=== PATIENT | female | born 1955 | race Caucasian/White ===

== ENCOUNTER 2023-09-22 16:45 | Inpatient (IN) | payer MEDICARE ==
[~2023-09-22] VITALS: Ht 157.5 cm; Wt 58.5 kg
[2023-09-22] MEDS ORDERED: MIRT7.5T10 PO (19:21)
[2023-09-22] MEDS ORDERED: IBUP-1953 PO (19:21)
[2023-09-22] MEDS ORDERED: MAGNESIUM HYDROXIDE 30 ML UDC PO PRN (20:30)
[2023-09-22] MEDS ORDERED: METO25TA4 PO (20:37)
[2023-09-22] MEDS: BLOOD SUGAR DIAGNOSTIC 1 EACH STRIP IN ONE (20:44)
[2023-09-22] MEDS: LORAZEPAM 0.5 MG TABLET PO PRN (20:45)
[2023-09-22] MEDS: ZOLPIDEM TARTRATE 5 MG TABLET PO PRN (21:50)
[2023-09-22] MEDS: ACETAMINOPHEN 325 MG TABLET PO PRN (22:26)
[2023-09-23] MEDS: IBUPROFEN 400 MG TABLET PO PRN (06:30)
[2023-09-23 07:36] LABS: ALBUMIN 3.1 g/dL (3.4-5.0); BILIRUBIN,TOTAL 0.9 mg/dL (0.2-1.0); CALCIUM, SERUM 9.5 mg/dL (8.5-10.1); CREATININE 0.7 mg/dL (0.6-1.3); POTASSIUM 2.9 mmol/L (3.5-5.1); TOTAL PROTEIN, SERUM 6.5 g/dL (6.4-8.2)
[2023-09-23 08:00] VITALS: BP 181/68; TEMP 98.1; O2SAT 98
[2023-09-23 08:08] LABS: CHOLESTEROL 176 mg/dL (<200); HDL CHOLESTEROL 67 mg/dL (40-60); LDL 90 mg/dL (0-99); TRIGLYCERIDES 93 mg/dL (30-150)
[2023-09-23] MEDS: METOPROLOL SUCCINATE 25 MG TAB.SR.24H PO SCH (08:14)
[2023-09-23] MEDS ORDERED: Z GUARD REMEDY 4 OZ OINT TP PRN (10:00)
[2023-09-23] MEDS: POTASSIUM CHLORIDE 10 MEQ TABLET.SA PO ONE (11:58)
[2023-09-23] MEDS: GABAPENTIN 100 MG CAPSULE PO SCH (12:46)
[2023-09-23] MEDS: hydrOXYzine PAMOATE 25 MG CAPSULE PO PRN (12:46)
[2023-09-23 13:24] LABS: APPEARANCE,URINE CLEAR (CLEAR); BILIRUBIN,URINE NEGATIVE (NEGATIVE); BLOOD, URINE NEGATIVE Ery/uL (NEGATIVE); COLOR,URINE YELLOW (YELLOW); KETONES,URINE TRACE mg/dL (NEGATIVE); LEUKOCYTE ESTERASE ,URINE 2+ (NEGATIVE); NITRITE, URINE NEGATIVE (NEGATIVE); PH,URINE 5.5 (5.0-8.0); PROTEIN,URINE NEGATIVE (NEGATIVE); UGLUCOSE NEGATIVE (NEGATIVE); UROBILINOGEN,URINE 0.2 EU/dL (0.2)
[2023-09-23 14:22] LABS: ADD URINE CULTURE YES; BACTERIA,URINE Many /HPF (None Seen); RBC,URINE 0-2 /HPF (0-2)
[2023-09-23] MEDS: hydrALAZINE HCL 25 MG TABLET PO PRN (15:34)
[2023-09-23] MEDS: LORAZEPAM 1 MG TABLET PO PRN (15:53)
[2023-09-23 16:00] VITALS: BP 182/72; TEMP 97.9; O2SAT 99
[2023-09-23] MEDS: MAG HYDROX/AL HYDROX/SIMETH 30 ML UDC PO PRN (17:50)
[2023-09-23 20:53] VITALS: BP 155/75; TEMP 97.9; O2SAT 98
[2023-09-23] MEDS: MIRTAZAPINE 15 MG TABLET PO SCH (21:10)
[2023-09-23] MEDS: diphenhydrAMINE HCL 50 MG CAPSULE PO PRN (21:28)
[2023-09-23] MEDS: CEPHALEXIN MONOHYDRATE 500 MG CAPSULE PO SCH (22:08)
[2023-09-24 07:11] LABS: BASOPHILS % (AUTO) 0.5 % (0.0-2.0); EOSINOPHILS # (AUTO) 0.1 K/uL (0.0-0.7); EOSINOPHILS % (AUTO) 2.5 % (0.0-6.0); HEMATOCRIT 33 % (33-45); HEMOGLOBIN 10.9 g/dL (11.5-14.8); LYMPHOCYTES # (AUTO) 1.4 K/uL (0.8-4.8); LYMPHOCYTES % (AUTO) 40.6 % (20.0-44.0); MEAN CORPUSCULAR HEMOGLOBIN 27 PG (26.0-33.0); MEAN CORPUSCULAR HGB CONC 33 g/dl (31.0-36.0); MEAN CORPUSCULAR VOLUME 81 fL (82-100); MONOCYTES # (AUTO) 0.3 K/uL (0.1-1.30); MONOCYTES % (AUTO) 9.1 % (2.0-12.0); NEUTROPHILS # (AUTO) 1.7 K/uL (1.8-8.9); NEUTROPHILS % (AUTO) 47.3 % (43.0-81.0); PLATELET COUNT (AUTO) 130 K/uL (150-450); RED BLOOD CELL COUNT(AUTO) 4.09 MIL/uL (4.0-5.2); RED CELL DISTRIBUTION WIDTH 14.9 % (11.5-15.0); WHITE BLOOD COUNT (AUTO) 3.5 K/uL (4.3-11.0)
[2023-09-24 07:20] LABS: CALCIUM, SERUM 9.3 mg/dL (8.5-10.1); CREATININE 0.6 mg/dL (0.6-1.3); POTASSIUM 3.5 mmol/L (3.5-5.1)
[2023-09-24 08:00] VITALS: BP 166/80; TEMP 99.7; O2SAT 100
[2023-09-24] MEDS: VENLAFAXINE XR 37.5 MG CAP.SR.24H PO SCH (08:34)
[2023-09-24 16:00] VITALS: BP 113/66; TEMP 97.6; O2SAT 94
[2023-09-24 20:36] VITALS: BP 154/79; TEMP 98.2; O2SAT 97
[2023-09-25 07:27] LABS: BASOPHILS % (AUTO) 0.5 % (0.0-2.0); EOSINOPHILS # (AUTO) 0.1 K/uL (0.0-0.7); EOSINOPHILS % (AUTO) 3.3 % (0.0-6.0); HEMATOCRIT 35 % (33-45); HEMOGLOBIN 11.5 g/dL (11.5-14.8); LYMPHOCYTES # (AUTO) 1.6 K/uL (0.8-4.8); LYMPHOCYTES % (AUTO) 50.3 % (20.0-44.0); MEAN CORPUSCULAR HEMOGLOBIN 27 PG (26.0-33.0); MEAN CORPUSCULAR HGB CONC 33 g/dl (31.0-36.0); MEAN CORPUSCULAR VOLUME 81 fL (82-100); MONOCYTES # (AUTO) 0.2 K/uL (0.1-1.30); MONOCYTES % (AUTO) 7.8 % (2.0-12.0); NEUTROPHILS # (AUTO) 1.2 K/uL (1.8-8.9); NEUTROPHILS % (AUTO) 38.1 % (43.0-81.0); PLATELET COUNT (AUTO) 139 K/uL (150-450); RED BLOOD CELL COUNT(AUTO) 4.25 MIL/uL (4.0-5.2); RED CELL DISTRIBUTION WIDTH 15.2 % (11.5-15.0); WHITE BLOOD COUNT (AUTO) 3.2 K/uL (4.3-11.0)
[2023-09-25 08:00] VITALS: BP 188/84; TEMP 98.7; O2SAT 98
[2023-09-25 09:20] LABS: CALCIUM, SERUM 8.7 mg/dL (8.5-10.1); CREATININE 0.8 mg/dL (0.6-1.3); POTASSIUM 3.7 mmol/L (3.5-5.1)
[2023-09-25] MEDS: METOPROLOL SUCCINATE 25 MG TAB.SR.24H PO SCH (11:00)
[2023-09-25 12:10] LABS: THYROID STIMULATING HORMONE 1.17 uIU/mL (0.358-3.74)
[2023-09-25] MEDS ORDERED: IOHEXOL-300 100 ML VIAL IV ONE (12:40)
[2023-09-25] MEDS ORDERED: IV NS 0.9% 250 ML IV ONE (12:40)
[2023-09-25] MEDS: GABAPENTIN 100 MG CAPSULE PO SCH (13:45)
[2023-09-25] MEDS: LORAZEPAM 1 MG TABLET PO PRN (15:23)
[2023-09-25 16:00] VITALS: BP 174/75; TEMP 97.7; O2SAT 98
[2023-09-25 20:00] VITALS: BP 152/82; TEMP 98.4; O2SAT 99
[2023-09-26 07:39] LABS: BASOPHILS % (AUTO) 0.8 % (0.0-2.0); EOSINOPHILS # (AUTO) 0.1 K/uL (0.0-0.7); EOSINOPHILS % (AUTO) 4.5 % (0.0-6.0); HEMATOCRIT 34 % (33-45); HEMOGLOBIN 11.2 g/dL (11.5-14.8); LYMPHOCYTES # (AUTO) 1.4 K/uL (0.8-4.8); LYMPHOCYTES % (AUTO) 46.2 % (20.0-44.0); MEAN CORPUSCULAR HEMOGLOBIN 27 PG (26.0-33.0); MEAN CORPUSCULAR HGB CONC 33 g/dl (31.0-36.0); MEAN CORPUSCULAR VOLUME 81 fL (82-100); MONOCYTES # (AUTO) 0.3 K/uL (0.1-1.30); MONOCYTES % (AUTO) 9.3 % (2.0-12.0); NEUTROPHILS # (AUTO) 1.2 K/uL (1.8-8.9); NEUTROPHILS % (AUTO) 39.2 % (43.0-81.0); PLATELET COUNT (AUTO) 130 K/uL (150-450); RED BLOOD CELL COUNT(AUTO) 4.24 MIL/uL (4.0-5.2); RED CELL DISTRIBUTION WIDTH 15.3 % (11.5-15.0)
[2023-09-26 08:00] VITALS: BP 123/95; TEMP 97.6; O2SAT 99
[2023-09-26 08:10] LABS: IMMUNOGLOBULIN A, SERUM 184 mg/dL (87-352); IMMUNOGLOBULIN G, SERUM 1021 mg/dL (586-1602); IMMUNOGLOBULIN M, SERUM 73 mg/dL (26-217)
[2023-09-26 08:10] LABS: CREATININE 0.6 mg/dL (0.6-1.3)
[2023-09-26 08:21] LABS: CALCIUM, SERUM 9.3 mg/dL (8.5-10.1); POTASSIUM 3.8 mmol/L (3.5-5.1)
[2023-09-26 11:12] LABS: FOLIC ACID 6.6 ng/mL (>3.0)
[2023-09-26 16:00] VITALS: BP 131/96; TEMP 97.6; O2SAT 98
[2023-09-26 16:10] LABS: *SPE A/G RATIO 1.2 (0.7-1.7); *SPE ALBUMIN 3.4 g/dL (2.9-4.4); *SPE ALPHA-1-GLOBULIN 0.2 g/dL (0.0-0.4); *SPE ALPHA-2-GLOBULIN 0.6 g/dL (0.4-1.0); *SPE GLOBULIN, TOTAL 2.9 g/dL (2.2-3.9); *SPE M-SPIKE Not Observed g/dL (Not Observed); *SPE PROTEIN TOTAL 6.3 g/dL (6.0-8.5)
[2023-09-26 20:00] VITALS: BP 142/69; TEMP 97.9; O2SAT 99
[2023-09-27 08:00] VITALS: BP 136/89; TEMP 97.7; O2SAT 99
[2023-09-27] MEDS: VENLAFAXINE XR 37.5 MG CAP.SR.24H PO SCH (09:41)
[2023-09-27] MEDS: GABAPENTIN 100 MG CAPSULE PO SCH (09:45)
[2023-09-27 10:00] VITALS: BP 136/89
[2023-09-27 16:00] VITALS: BP 147/100; TEMP 98; O2SAT 98
[2023-09-27 20:00] VITALS: BP 141/72; TEMP 97.6; O2SAT 98
[2023-09-28 08:00] VITALS: BP 152/85; TEMP 98.9; O2SAT 97
[2023-09-28 16:00] VITALS: BP 144/73; TEMP 97.7; O2SAT 97
[2023-09-28 16:39] LABS: BASOPHILS % (AUTO) 0.5 % (0.0-2.0); EOSINOPHILS # (AUTO) 0.1 K/uL (0.0-0.7); EOSINOPHILS % (AUTO) 2.7 % (0.0-6.0); HEMATOCRIT 34 % (33-45); HEMOGLOBIN 11.2 g/dL (11.5-14.8); LYMPHOCYTES # (AUTO) 1.7 K/uL (0.8-4.8); LYMPHOCYTES % (AUTO) 39.6 % (20.0-44.0); MEAN CORPUSCULAR HEMOGLOBIN 27 PG (26.0-33.0); MEAN CORPUSCULAR HGB CONC 33 g/dl (31.0-36.0); MEAN CORPUSCULAR VOLUME 81 fL (82-100); MONOCYTES # (AUTO) 0.4 K/uL (0.1-1.30); MONOCYTES % (AUTO) 8.4 % (2.0-12.0); NEUTROPHILS # (AUTO) 2.1 K/uL (1.8-8.9); NEUTROPHILS % (AUTO) 48.8 % (43.0-81.0); PLATELET COUNT (AUTO) 142 K/uL (150-450); RED CELL DISTRIBUTION WIDTH 15.5 % (11.5-15.0); WHITE BLOOD COUNT (AUTO) 4.3 K/uL (4.3-11.0)
[2023-09-28 16:51] LABS: CALCIUM, SERUM 8.6 mg/dL (8.5-10.1); CREATININE 0.6 mg/dL (0.6-1.3); POTASSIUM 3.9 mmol/L (3.5-5.1)
[2023-09-28 20:00] VITALS: BP 139/72; TEMP 98.3; O2SAT 99
[2023-09-29 08:00] VITALS: BP 160/72; TEMP 97.7; O2SAT 100
[2023-09-29 16:00] VITALS: BP 138/72; TEMP 97.9; O2SAT 99
[2023-09-29 20:30] VITALS: BP 124/79; TEMP 98.2; O2SAT 98
[2023-09-30 08:00] VITALS: BP 153/79; TEMP 98.7; O2SAT 97
[2023-09-30] MEDS: GABAPENTIN 100 MG CAPSULE PO SCH (08:29)
[2023-09-30 16:00] VITALS: BP 124/80; TEMP 97.8; O2SAT 99
[2023-09-30 20:00] VITALS: BP 150/81; TEMP 98; O2SAT 99
[2023-09-30] MEDS: MIRTAZAPINE 15 MG TABLET PO SCH (21:10)
[2023-10-01 08:00] VITALS: BP 142/89; TEMP 97.9; O2SAT 98
[2023-10-01 16:00] VITALS: BP 136/72; TEMP 97.9; O2SAT 99
[2023-10-01 20:28] VITALS: BP 144/79; TEMP 98.4; O2SAT 97
[2023-10-01] MEDS: FLUCONAZOLE (100 MG) 100 MG TABLET PO ONE (21:10)
[2023-10-02 08:00] VITALS: BP 154/80; TEMP 98.7; O2SAT 98
[2023-10-02 16:00] VITALS: BP 144/77; TEMP 98.7; O2SAT 98
[2023-10-02 20:31] VITALS: BP 163/75; TEMP 98.2; O2SAT 98
[2023-10-03 08:00] VITALS: BP 146/79; TEMP 97.9; O2SAT 98
[2023-10-03] MEDS ORDERED: diphenhydrAMINE HCL/ZINC ACET CREAM 28.3 GM TUBE TP PRN (09:00)
[2023-10-03 16:00] VITALS: BP 134/86; TEMP 98.9; O2SAT 94
[2023-10-03 20:00] VITALS: BP 136/79; TEMP 98.2; O2SAT 98
[2023-10-04 08:00] VITALS: BP 144/87; TEMP 98.6; O2SAT 98
[2023-10-04 08:15] VITALS: BP 144/87
== END 2023-10-04 14:15 | disposition home or self-care (01) | DRG 885 ==
LOC: GPS 18:44
PROVIDERS: ADMIT Psychiatry & Neurology Psychiatry
DX: F33.3 Major depressive disorder, recurrent, severe with psychotic symptoms (principal); E44.1 Mild protein-calorie malnutrition; R45.851 Suicidal ideations; F29 Unspecified psychosis not due to a substance or known physiological condition; F41.9 Anxiety disorder, unspecified; I10 Essential (primary) hypertension; D64.9 Anemia, unspecified; E87.6 Hypokalemia; E88.09 Other disorders of plasma-protein metabolism, not elsewhere classified; Z68.23 Body mass index [BMI] 23.0-23.9, adult; F19.10 Other psychoactive substance abuse, uncomplicated; Z73.6 Limitation of activities due to disability; Z85.028 Personal history of other malignant neoplasm of stomach; Z79.60 Long term (current) use of unspecified immunomodulators and immunosuppressants
CPT/HCPCS: 36415; 71270-TC; 74178; 80048-TC; 80053-TC; 80061-TC; 81001; 82378; 82607-TC; 82728-TC; 82784; 82962-TC; 83540-TC; 84155; 84165; 84443-TC; 84484-TC; 85025-TC; 86334; 87081-TC; 87086-TC; 97110-TC; 97116-TC; 97530-TC; J7050; Q0163; Q0177; Q9967